=== PATIENT | female | born 1990 | race Caucasian/White ===

== ENCOUNTER 2019-03-14 11:30 | Emergency (ER) | payer OTHER ==
--- NOTE | 2019-03-14 13:02 | ED Physician Chart ---
ED Chief Complaint/HPI - Patient Information Date Seen:: 03/14/19 Time Seen:: 12:00 Chief Complaint:: multiple episode mid buttockdown leg History of Present Illness:: bending over scenerio told has disk questions need mri Allergies:: Allergies Allergy/AdvReac Type Severity Reaction Status Date / Time No Known Allergies Allergy Verified 03/14/19 11:55 Vitals:: Vital Signs - 8 hr 03/14/19 03/14/19 11:56 12:06 Temp 97.9 F 97.9 F HR 71 71 RR 17 17 BP 126/69 126/69 O2 Sat % 98 71 ED Review of Systems - Review of Systems General/Constitutional: No fever Skin: No skin lesions Head: No headache Eyes: No loss of vision ENT: No earache Neck: No neck pain Cardio Vascular: No chest pain Pulmonary: No SOB GI: No nausea, No vomiting G/U: No dysuria Musculoskeletal: Back pain Endocrine: No polyuria Hematopoietic: No bruising Allergic/Immuno: No urticaria Neurological: No syncope (no ) ED Past Medical History - Past Medical History Past Medical History: No significant medical hx Family Medical History - Family Member Mother History Unknown: Yes ED Physical Exam - Physical Examination General/Constitutional: Well-developed, well-nourished, Alert, No distress, GCS 15, Non-toxic appearing, Ambulatory (straight leg negitive) Head: Atraumatic Eyes: Lids, conjuctiva normal Skin: Nl inspection ENMT: External ears, nose nl Neck: Nontender Respiratory: Nl effort/Exclusion Cardio Vascular: RRR GI: No tenderness/rebounding/guarding : No CVA tenderness Extremities: No tenderness or effusion Neuro/Psych: Alert/oriented Misc: Normal back (warm extremity) ED Assessment - Assessment General Assessment: lumbar strain vs siatica ED Septic Shock - . Is Septic Shock (SBP<90, OR Lactate>4 mmol\L) present?: No - <6hrs of presentation: Vital Signs: Vital Signs - 8 hr 03/14/19 03/14/19 11:56 12:06 Temp 97.9 F 97.9 F HR 71 71 RR 17 17 BP 126/69 126/69 O2 Sat % 98 71 ED Reassessment (Disposition) - Reassessment Reassessment Condition:: Improved (go to primary care get to see orthopedic) - Patient Disposition Discharge/Transfer:: Home (torodol neurontin no nsaid)
== END 2019-03-14 12:22 | disposition home or self-care (01) ==
LOC: ER 11:30
DX: M54.5 Low back pain (principal)
CPT/HCPCS: 99283; 96372; J1885; Z7502